=== PATIENT | female | born 2000 | race Caucasian/White ===

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

== ENCOUNTER → 2021-07-06 | Outpatient (REF) | payer OTHER ==
[~2021-07-06] MED LIST: ALBU8.5H; FLUT1INH2
[2021-07-06 13:32] LABS: ALBUMIN 3.9 GM/DL (3.2-5.2); ALT/SGPT 49 U/L (12-78); BILIRUBIN,TOTAL 1.3 MG/DL (0.2-1.0); BLOOD UREA NITROGEN 22 MG/DL (7-18); CALCIUM LEVEL 9.5 MG/DL (8.5-10.1); CARBON DIOXIDE LEVEL 28 MEQ/L (21-32); CHLORIDE LEVEL 105 MEQ/L (98-107); CREATININE FOR GFR 0.87 MG/DL (0.55-1.30); FREE T4 1.05 NG/DL (0.78-1.33); GLUCOSE, FASTING 78 MG/DL (70-100); POTASSIUM SERUM 4.9 MEQ/L (3.5-5.1); RHEUMATOID FACTOR QUANT < 10.0 IU/ML (<15.0); SODIUM LEVEL 138 MEQ/L (136-145); TOTAL 25(OH) VITAMIN D 22.2 NG/ML (30.0-100.0); TOTAL PROTEIN 7.4 GM/DL (6.4-8.2)
[2021-07-09 16:08] LABS: ANTINUCLEAR ANTIBODIES DIRECT Negative (Negative); Lyme Disease IgG/IgM Antibodie <0.91 ISR (0.00-0.90); Lyme Disease IgM Ab Quantitati <0.80 index (0.00-0.79)
== END ==
LOC: M SFHCADAM 11:12
PROVIDERS: ATTEND Family Medicine
DX: F32.9 Major depressive disorder, single episode, unspecified (principal); E55.9 Vitamin D deficiency, unspecified; M25.50 Pain in unspecified joint

== ENCOUNTER → 2024-04-21 | Outpatient (REF) | payer BC ==
[2024-04-21 15:31] LABS: APPEARANCE, URINE CLEAR (CLEAR); BACTERIA, URINE AUTO NEGATIVE (NEGATIVE); BILIRUBIN, URINE AUTO NEGATIVE (NEGATIVE); BLOOD, URINE BLOOD 1+ (NEGATIVE); COLOR, URINE YELLOW (YELLOW); GLUCOSE, URINE (UA) AUTO NEGATIVE (NEGATIVE); KETONE, URINE AUTO NEGATIVE (NEGATIVE); LEUKOCYTE ESTERASE, URINE AUTO 1+ (NEGATIVE); MUCUS, URINE SMALL (NEGATIVE); NITRITE, URINE AUTO NEGATIVE (NEGATIVE); PROTEIN, URINE AUTO NEGATIVE (NEGATIVE); RBC, URINE AUTO 4 /HPF (0-3); SPECIFIC GRAVITY URINE AUTO 1.011 (1.002-1.035); SQUAMOUS EPITHELIAL CELL UR AU 1 /HPF (0-6); UROBILINOGEN, URINE AUTO 0.2 mg/dL (0.0-2.0); WBC, URINE AUTO 4 /HPF (0-3)
== END ==
LOC: M SFHCADAM 09:18
PROVIDERS: ATTEND Physician Assistant Medical
DX: N39.0 Urinary tract infection, site not specified (principal)

== ENCOUNTER → 2024-05-13 | Outpatient (REF) | payer BC | LOC: M SFHCWAGY 08:23 | PROVIDERS: ATTEND Nurse Practitioner Family | DX: Z12.4 Encounter for screening for malignant neoplasm of cervix (principal) ==

== ENCOUNTER → 2024-06-16 | Outpatient (CLI) | payer BC ==
[2024-06-16 13:24] LABS: BASO % 0.3 % (0.0-1.0); EOS # 0.1 10^3/uL (0.0-0.5); EOS % 1.2 % (0.0-3.0); HEMATOCRIT 41.4 % (36.0-47.0); HEMOGLOBIN 13.5 g/dl (12.0-15.5); LYMPH # 1.5 10^3/uL (1.5-5.0); LYMPH % 22.2 % (24.0-44.0); MEAN CORPUSCULAR HEMOGLOBIN 29.7 pg (27.0-33.0); MEAN CORPUSCULAR HGB CONC 32.6 g/dl (32.0-36.5); MEAN CORPUSCULAR VOLUME 91.2 fl (80.0-96.0); MONO # 0.6 10^3/uL (0.0-0.8); MONO % 9.2 % (2.0-8.0); NEUTROPHILS # 4.5 10^3/uL (1.5-8.5); NEUTROPHILS % 66.8 % (36.0-66.0); PLATELET COUNT, AUTOMATED 213 10^3/uL (150-450); RED BLOOD COUNT 4.54 10^6/uL (4.00-5.40); WHITE BLOOD COUNT 6.7 10^3/uL (4.0-10.0)
[2024-06-16 13:27] LABS: FREE T4 1.15 NG/DL (0.89-1.76); THYROID STIMULATING HORMONE 1.534 uIU/ML (0.55-4.78)
== END ==
LOC: M PLALAB 10:34
PROVIDERS: ATTEND Nurse Practitioner Family
DX: N93.9 Abnormal uterine and vaginal bleeding, unspecified (principal)

== ENCOUNTER → 2024-07-01 | Outpatient (CLI) | payer BC | LOC: M WHC 07:13 | PROVIDERS: ATTEND Nurse Practitioner Family | DX: N94.6 Dysmenorrhea, unspecified (principal); N93.9 Abnormal uterine and vaginal bleeding, unspecified ==

== ENCOUNTER → 2024-08-06 | Outpatient (REF) | payer BC | LOC: M SFHCADAM 17:08 | DX: N30.00 Acute cystitis without hematuria (principal) ==

== ENCOUNTER 2024-09-08 07:17 | Day surgery (SDC) | payer BC ==
[~2024-09-08] VITALS: Ht 170.2 cm; Wt 86.3 kg
[~2024-09-08 07:17] MED LIST changes: +FLUTISP; +KETOROLAC 60MG 2ML VIAL As Ordered ONE; +LIDOCAINE 2% 100MG/5ML SDV (FOR ANES.) As Ordered ONE; +LORA-1041 PO; +MIDAZOLAM INJ 2MG/2ML VIAL As Ordered ONE; +OMEGCAP9 PO; +OMEP-173 PO; +ONDANSETRON 4MG 2ML VIAL As Ordered ONE; +PRENTAB53 PO; +VITA100065 PO; +VITA100093 PO; +fentaNYL 100 MCG/2 ML INJECTION As Ordered ONE; +propofoL 200 MG/20 ML VIAL As Ordered ONE
[2024-09-08] MEDS ORDERED: ALBUTEROL SULFATE 2.5MG/0.5ML INH NEB SOLN INH PRN (07:45)
[2024-09-08 07:52] LABS: HEMATOCRIT 41.4 % (36.0-47.0); HEMOGLOBIN 13.8 g/dl (12.0-15.5); MEAN CORPUSCULAR HEMOGLOBIN 29.5 pg (27.0-33.0); MEAN CORPUSCULAR HGB CONC 33.3 g/dl (32.0-36.5); MEAN CORPUSCULAR VOLUME 88.5 fl (80.0-96.0); PLATELET COUNT, AUTOMATED 216 10^3/uL (150-450); RED BLOOD COUNT 4.68 10^6/uL (4.00-5.40); WHITE BLOOD COUNT 6.4 10^3/uL (4.0-10.0)
[2024-09-08] MEDS ORDERED: ACETAMINOPHEN 1000MG/100ML IV BAG As Ordered ONE (08:29)
[2024-09-08] MEDS: LIDOCAINE 1% SDV 30ML VIAL As Ordered ONE (08:47)
[2024-09-08] MEDS: SILVER NITRATE APPLICATOR (1 = QTY 10) As Ordered ONE (09:05)
[2024-09-08] MEDS ORDERED: fentaNYL 100 MCG/2 ML INJECTION IV PRN (09:10)
[2024-09-08] MEDS ORDERED: oxyCODONE 5MG TAB PO PRN (09:10)
[2024-09-08] MEDS ORDERED: ONDANSETRON 4MG 2ML VIAL IV PRN (09:10)
[2024-09-08] MEDS ORDERED: HYDROMORPHONE HCL 0.5 MG/ 0.5 ML SYRINGE IV PRN (09:10)
[2024-09-08] MEDS: MEPERIDINE 25 MG/ML 1ML VIAL IV PRN (09:22)
[2024-09-08] MEDS ORDERED: MEPERIDINE 25 MG/ML 1ML VIAL As Ordered ONE (09:23)
[2024-09-08 10:50] VITALS: BP 142/79; TEMP 97.1; O2SAT 96
== END 2024-09-08 10:58 | disposition home or self-care (01) ==
LOC: M SDC 07:17
PROVIDERS: ATTEND Obstetrics & Gynecology
DX: N84.0 Polyp of corpus uteri (principal); Z88.8 Allergy status to other drugs, medicaments and biological substances; Z79.899 Other long term (current) drug therapy
CPT/HCPCS: 36415; 58558; 81025; 85027; 86850; 86900; 86901; 88305; J0131; J1100; J1885; J2175; J2250; J2405; J3010

== ENCOUNTER → 2024-12-03 | Outpatient (CLI) | payer OTHER ==
[~2024-12-03] MED LIST changes: -KETOROLAC 60MG 2ML VIAL As Ordered ONE; -LIDOCAINE 2% 100MG/5ML SDV (FOR ANES.) As Ordered ONE; -MIDAZOLAM INJ 2MG/2ML VIAL As Ordered ONE; -ONDANSETRON 4MG 2ML VIAL As Ordered ONE; -fentaNYL 100 MCG/2 ML INJECTION As Ordered ONE; -propofoL 200 MG/20 ML VIAL As Ordered ONE
[2024-12-03 17:04] LABS: GC DNA AMPLIFICATION NEGATIVE (NEGATIVE)
[2024-12-03 17:41] LABS: Trichomonas vaginalis (AMP) NOT DETECTED (NEGATIVE)
[2024-12-03 18:34] LABS: HEMATOCRIT 39.7 % (36.0-47.0); MEAN CORPUSCULAR HGB CONC 32.7 g/dl (32.0-36.5); MEAN CORPUSCULAR VOLUME 91.7 fl (80.0-96.0); PLATELET COUNT, AUTOMATED 241 10^3/uL (150-450); RED BLOOD COUNT 4.33 10^6/uL (4.00-5.40); WHITE BLOOD COUNT 7.1 10^3/uL (4.0-10.0)
[2024-12-03 19:30] LABS: HIV 1&2 SCREEN NEGATIVE (NEGATIVE)
[2024-12-03 19:39] LABS: HEPATITIS C VIRUS ABY INDEX 0.11 INDEX (<0.8)
== END ==
LOC: M PLALAB 14:17
PROVIDERS: ATTEND Nurse Practitioner Family
DX: Z34.01 Encounter for supervision of normal first pregnancy, first trimester (principal); Z3A.00 Weeks of gestation of pregnancy not specified

== ENCOUNTER → 2024-12-30 | Outpatient (REF) | payer OTHER, MEDICAID | LOC: M PLALAB 14:53 | PROVIDERS: ATTEND Nurse Practitioner Family | DX: Z33.1 Pregnant state, incidental (principal); Z3A.14 14 weeks gestation of pregnancy ==

== ENCOUNTER → 2024-12-30 | Outpatient (CLI) | payer MEDICAID, OTHER | LOC: M PLALAB 15:10 | PROVIDERS: ATTEND Nurse Practitioner Family | DX: Z31.430 Encounter of female for testing for genetic disease carrier status for procreative management (principal) ==

== ENCOUNTER → 2025-02-15 | Outpatient (CLI) | payer OTHER, MEDICAID | LOC: M WHC 14:33 | PROVIDERS: ATTEND Nurse Practitioner Family | DX: Z34.02 Encounter for supervision of normal first pregnancy, second trimester (principal); Z3A.20 20 weeks gestation of pregnancy ==

== ENCOUNTER → 2025-06-09 | Outpatient (REF) | payer MEDICAID | LOC: M SFHCWAGY 12:34 | PROVIDERS: ATTEND Advanced Practice Midwife | DX: Z3A.36 36 weeks gestation of pregnancy (principal) ==

== ENCOUNTER 2025-06-23 05:11 | Inpatient (IN) | payer MEDICAID ==
[~2025-06-23] VITALS: Ht 170.2 cm; Wt 108.0 kg
[2025-06-23] VITALS (9 sets, daily range): BP systolic 102–137; BP diastolic 50–89; TEMP 98.5; O2SAT 95–98
[~2025-06-23 05:11] MED LIST changes: +IRON65TA2 PO; +ONDA-83; +VITA50TA6 PO
[2025-06-23] MEDS ORDERED: TRANEXAMIC ACID INJection 1,000 MG in NS 100 ML IV PRN (05:20)
[2025-06-23] MEDS ORDERED: METHYLERGONOVINE MALEATE 0.2 MG/ML 1 ML VIAL IM PRN (05:20)
[2025-06-23] MEDS ORDERED: CARBOPROST TROMETHAMINE 250 MCG/ML AMP IM PRN (05:20)
[2025-06-23] MEDS ORDERED: OXYTOCIN DRIP 30 UNITS in IV 1 EA IV PRN (05:20)
[2025-06-23 06:21] LABS: PLATELET COUNT, AUTOMATED 219 10^3/uL (150-450)
[2025-06-23] MEDS: LACTATED RINGER'S 1000 ML IV STA (07:01)
[2025-06-23] MEDS: LR 1,000 ML IV SCH ×2 (07:02→08:10)
[2025-06-23] MEDS: BICITRA 30 ML SOLN UDC PO ONE (07:05)
[2025-06-23] MEDS: ceFAZolin SODIUM 2 GM in DEXTROSE 5% (D5W) ADV/MINI-BAG 50 ML IV ONE (07:05)
[2025-06-23 07:13] LABS: HIV 1&2 SCREEN NEGATIVE (NEGATIVE)
[2025-06-23] MEDS ORDERED: dexAMETHasone 4 MG/ML 1 ML VIAL As Ordered ONE (07:20)
[2025-06-23] MEDS ORDERED: ONDANSETRON 4MG 2ML VIAL As Ordered ONE (07:20)
[2025-06-23] MEDS ORDERED: OXYTOCIN INJ 10UNITS/ML 1ML VIAL As Ordered ONE (07:20)
[2025-06-23] MEDS ORDERED: KETOROLAC 30 MG/ML 1 ML VIAL As Ordered ONE (07:20)
[2025-06-23 07:21] LABS: HEPATITIS C VIRUS ABY INDEX < 0.02 INDEX (<0.8)
[2025-06-23] MEDS ORDERED: MORPHINE PRES-FREE INJ 10 MG/10 ML VIAL As Ordered ONE (07:21)
[2025-06-23] MEDS: OXYTOCIN DRIP 30 UNITS in IV 1 EA IV SCH (08:10)
[2025-06-23] MEDS ORDERED: SIMETHICONE 80MG CHEW TAB PO PRN (08:10)
[2025-06-23] MEDS ORDERED: MOM 30 ML SUSPENSION UDC PO PRN (08:10)
[2025-06-23] MEDS ORDERED: RHOGAM 300MCG (1500IU) INJ IM SCH (08:10)
[2025-06-23] MEDS ORDERED: PHENYLephrine 500MCG 5ML (100MCG/ML) SYRINGE As Ordered ONE (08:33)
[2025-06-23 08:44] LABS: CORD GAS ABE A -2.2; CORD GAS HCO3 A 26.2 MMOL/L; CORD GAS O2 SAT A 23.3 %; CORD GAS PCO2 A 59.9 mmHg; CORD GAS PH A 7.258 UNITS; CORD GAS PO2 A 13.8 mmHg; CORD GAS SBC A 20.9 MMOL/L; CORD GAS TCO2 A 28.0 MMOL/L
[2025-06-23 08:45] LABS: CORD GAS ABE V -1.1; CORD GAS HCO3 V 25.4 MMOL/L; CORD GAS O2 SAT V 68.7 %; CORD GAS PCO2 V 48.8 mmHg; CORD GAS PH V 7.334 UNITS; CORD GAS PO2 V 29.4 mmHg; CORD GAS SBC V 22.8 MMOL/L; CORD GAS TCO2 V 26.9 MMOL/L
[2025-06-23] MEDS: DOCUSATE SODIUM 100 MG CAPSULE PO SCH (09:00)
[2025-06-23] MEDS: PRENATAL VITAMINS CHEWABLE TABLET PO SCH (09:00)
[2025-06-23] MEDS ORDERED: HYDROMORPHONE HCL 0.5 MG/0.5 ML SYRINGE IV PRN (12:00)
[2025-06-23] MEDS: SLF 3 ML SYR IV SCH (12:00)
[2025-06-23] MEDS ORDERED: diphenhydrAMINE 50 MG/ML VIAL IV PRN (12:00)
[2025-06-23] MEDS ORDERED: ONDANSETRON 4MG 2ML VIAL IV PRN (12:00)
[2025-06-23] MEDS ORDERED: NALOXONE INJ 0.4 MG/1 ML VIAL IV PRN ×2 (12:00)
[2025-06-23] MEDS ORDERED: **NOTE PATIENT COMMENT** MISC XX SCH (12:00)
[2025-06-23] MEDS: KETOROLAC 30 MG/ML 1 ML VIAL IV SCH (14:02)
[2025-06-23] MEDS: CALCIUM CARBONATE 500 MG CHEW U/D PO PRN (16:41)
[2025-06-24 02:00] VITALS: BP 112/65; O2SAT 98
[2025-06-24 06:00] VITALS: BP 99/61; O2SAT 99
[2025-06-24] MEDS: PERCOCET 5MG/325MG TAB PO PRN ×2 (08:02→20:49)
[2025-06-24 08:28] LABS: PLATELET COUNT, AUTOMATED 157 10^3/uL (150-450)
[2025-06-24] MEDS ORDERED: IBUP80TA PO (09:09)
[2025-06-24] MEDS ORDERED: COLA100C5 PO (09:09)
[2025-06-24] MEDS: IBUPROFEN 800 MG TAB PO SCH (10:02)
[2025-06-24 11:10] VITALS: BP 121/57; O2SAT 97
[2025-06-24 14:50] VITALS: BP 133/72; O2SAT 97
[2025-06-24 18:45] VITALS: BP 134/76; O2SAT 99
[2025-06-25 02:00] VITALS: BP 115/68; O2SAT 100
[2025-06-25 05:57] VITALS: BP 123/73; O2SAT 98
[2025-06-25] MEDS ORDERED: MEASLES,MUMPS,RUBELLA VACCINE INJ (MMR-II) SC.IMMUN ONE (09:00)
[2025-06-25] MEDS ORDERED: IBUP80TA PO (09:50)
[2025-06-25] MEDS ORDERED: COLA100C5 PO (09:50)
[2025-06-25] MEDS ORDERED: PERCOCET PO (10:06)
== END 2025-06-25 13:00 | disposition home or self-care (01) | DRG 540 ==
LOC: M LDI 05:11 → M OBS 11:09
PROVIDERS: ADMIT Obstetrics & Gynecology; ATTEND Obstetrics & Gynecology
PROC: 10D00Z1 Extraction of Products of Conception, Low, Open Approach (ICD-10-PCS; principal; 2025-06-23 07:30)
DX: O32.1XX0 Maternal care for breech presentation, not applicable or unspecified (principal); Z37.0 Single live birth; Z3A.39 39 weeks gestation of pregnancy; Z88.8 Allergy status to other drugs, medicaments and biological substances

== ENCOUNTER 2025-06-28 20:46 | Emergency (ER) | payer MEDICAID ==
[~2025-06-28] VITALS: Ht 170.2 cm; Wt 105.0 kg
[~2025-06-28 20:46] MED LIST changes: +COLA100C5 PO; +IBUP80TA PO; +PERCOCET PO
[2025-06-28 22:24] LABS: BASO # 0.0 10^3/uL (0.0-0.2); BASO % 0.4 % (0.0-1.0); EOS # 0.1 10^3/uL (0.0-0.5); EOS % 1.8 % (0.0-3.0); LYMPH # 1.7 10^3/uL (1.5-5.0); LYMPH % 21.9 % (24.0-44.0); MONO # 0.5 10^3/uL (0.0-0.8); MONO % 6.9 % (2.0-8.0); NEUTROPHILS # 5.2 10^3/uL (1.5-8.5); NEUTROPHILS % 66.3 % (36.0-66.0); PLATELET COUNT, AUTOMATED 221 10^3/uL (150-450)
[2025-06-28 22:48] LABS: ALT/SGPT 37.0 U/L (7.0-40); AST/SGOT 40.0 U/L (<34); CALCIUM LEVEL 8.9 MG/DL (8.5-10.1); CARBON DIOXIDE LEVEL 27.0 MMOL/L (20-31); CHLORIDE LEVEL 105.0 MMOL/L (98-107); CREATININE FOR GFR 1.06 MG/DL (0.55-1.30); GLOMERULAR FILTRATION RATE 75.7 (>60); POTASSIUM SERUM 4.3 MMOL/L (3.5-5.1); SODIUM LEVEL 139.0 MMOL/L (136-145)
[2025-06-28 22:59] VITALS: BP 130/79; O2SAT 98
[2025-06-28 23:13] VITALS: TEMP 97.2
== END 2025-06-28 23:14 | disposition home or self-care (01) ==
LOC: M ED 20:46
DX: N93.9 Abnormal uterine and vaginal bleeding, unspecified (principal); Z88.8 Allergy status to other drugs, medicaments and biological substances; Z79.1 Long term (current) use of non-steroidal anti-inflammatories (NSAID); Z79.899 Other long term (current) drug therapy; Z79.810 Long term (current) use of selective estrogen receptor modulators (SERMs)

== ENCOUNTER → 2025-07-21 | Outpatient (CLI) | payer MEDICAID, OTHER, SELFPAY ==
[2025-07-21 14:04] LABS: PLATELET COUNT, AUTOMATED 260 10^3/uL (150-450)
[2025-07-21 14:07] LABS: ALT/SGPT 25 U/L (7.0-40); AST/SGOT 17 U/L (<34); CALCIUM LEVEL 9.6 MG/DL (8.5-10.1); CARBON DIOXIDE LEVEL 28 MMOL/L (20-31); CHLORIDE LEVEL 102 MMOL/L (98-107); CREATININE FOR GFR 0.78 MG/DL (0.55-1.30); GLOMERULAR FILTRATION RATE > 90.0 (>60); IRON (FE) 66 UG/DL (50-170); PERCENT SATURATION 22.3 % (13.2-45.0); POTASSIUM SERUM 4.5 MMOL/L (3.5-5.1); SODIUM LEVEL 140 MMOL/L (136-145); VITAMIN B12 LEVEL 397 PG/ML (211-911)
[2025-07-21 14:15] LABS: ESTIMATED AVERAGE GLUCOSE 103.0 MG/DL (60-110)
== END ==
LOC: M PLALAB 10:31
PROVIDERS: ATTEND Nurse Practitioner Adult Health
DX: D64.9 Anemia, unspecified (principal); Z83.3 Family history of diabetes mellitus

== ENCOUNTER → 2025-08-17 | Outpatient (REF) | payer MEDICAID, OTHER ==
[~2025-08-17] MED LIST changes: +DOCU100C16 PO; +OMEG100011 PO
== END ==
LOC: M SFHCDERM 12:44
PROVIDERS: ATTEND Nurse Practitioner Family
DX: L02.91 Cutaneous abscess, unspecified (principal)

== ENCOUNTER 2025-09-02 10:33 | Day surgery (SDC) | payer OTHER ==
[~2025-09-02] VITALS: Ht 170.2 cm; Wt 98.9 kg
[2025-09-02] MEDS: ceFAZolin SOD 2 GM IV ONCE IV ONE (12:08)
[2025-09-02] MEDS ORDERED: MIDAZOLAM INJ 2 MG/2 ML VIAL As Ordered ONE (12:21)
[2025-09-02] MEDS ORDERED: LIDOCAINE 2% 100 MG/5 ML SDV (FOR ANES.) As Ordered ONE (12:24)
[2025-09-02] MEDS ORDERED: dexAMETHasone 4 MG/ML 1 ML VIAL As Ordered ONE (12:24)
[2025-09-02] MEDS ORDERED: ROCURONIUM BROMIDE 50MG/5ML VIAL As Ordered ONE (12:24)
[2025-09-02] MEDS ORDERED: KETOROLAC 30 MG/ML 1 ML VIAL As Ordered ONE (12:24)
[2025-09-02] MEDS ORDERED: ONDANSETRON 4MG/2ML VIAL As Ordered ONE (12:24)
[2025-09-02] MEDS ORDERED: ACETAMINOPHEN 1000MG/100ML IV BAG As Ordered ONE (12:25)
[2025-09-02] MEDS ORDERED: SUGAMMADEX SODIUM 200 MG/2 ML VIAL As Ordered ONE (12:26)
[2025-09-02] MEDS ORDERED: LR 1,000 ML IV SCH (13:15)
[2025-09-02] MEDS ORDERED: HYDROMORPHONE HCL 0.5 MG/0.5 ML SYRINGE IV PRN (13:15)
[2025-09-02] MEDS: ONDANSETRON 4MG/2ML VIAL IV PRN (13:35)
[2025-09-02 14:20] VITALS: BP 113/67; TEMP 97; O2SAT 98
== END 2025-09-02 14:50 | disposition home or self-care (01) ==
LOC: M SDC 10:33
PROVIDERS: ATTEND Surgery
DX: D17.1 Benign lipomatous neoplasm of skin and subcutaneous tissue of trunk (principal); Z88.8 Allergy status to other drugs, medicaments and biological substances; Z87.19 Personal history of other diseases of the digestive system
CPT/HCPCS: 21931; 81025; 88304; J0131; J0665; J0688; J1100; J1885; J2250; J2405; J2765; J3010